=== PATIENT | male | born 1945 | race Two or more races ===

== ENCOUNTER 2023-11-22 10:19 | Emergency (ER) | payer MEDICARE, SELFPAY ==
[2023-11-22] VITALS (13 sets, daily range): BP systolic 133–160; BP diastolic 65–76; PULSE 72–87; TEMP 36.6; O2SAT 87–100; BMI 26.6
--- NOTE | 2023-11-22 10:35 | ED.AMS1 ---
HPI - Altered Mental Status General Chief Complaint: Altered Mental Status Stated Complaint: GENERAL WEAKNESS Time Seen by Provider: 11/22/23 10:30 History of Present Illness HPI narrative: 78-year-old male presents for altered mental status. He had his normal complete dialysis today. He was transported here by paramedics because he seemed a bit confused. He does not complain of a headache or any localized weakness. He complains of no pain. He is a poor historian. Related Data Home Medications ?Medication ?Instructions ?Recorded ?Confirmed acetaminophen 500 mg tablet 500 mg PO .every 8 hours PRN fever 11/22/23 11/22/23 or pain albuterol sulfate 90 mcg/actuation 1 inh inhalation Q4H PRN shortness 11/22/23 11/22/23 aerosol inhaler of breath or wheezing atorvastatin 80 mg tablet 80 mg PO DAILY 11/22/23 11/22/23 calcitriol See Rx Instructions PO .COMPLEX 11/22/23 11/22/23 ergocalciferol (vitamin D2) 1,000 2,000 unit PO DAILY 11/22/23 11/22/23 unit capsule lactulose 10 gram/15 mL oral 30 ml PO TID 11/22/23 11/22/23 solution (Enulose) midodrine 5 mg tablet 5 mg PO .COMPLEX 11/22/23 11/22/23 multivitamin 1 tab PO DAILY 11/22/23 11/22/23 pantoprazole 40 mg tablet,delayed 40 mg PO DAILY 11/22/23 11/22/23 release (Protonix) sevelamer carbonate 800 mg tablet 800 mg PO TIDWMEAL 11/22/23 11/22/23 Review of Systems ROS Narrative A ten point review of systems is negative except as noted above. Exam Narrative Exam Narrative: Nurses note and vital signs reviewed and patient is not hypoxic. General: The patient appears well and in no apparent distress. Patient is resting comfortably on cart. Skin: Warm, dry, no pallor noted. There is no rash noted. Head: Normocephalic, atraumatic Eye: Normal conjunctiva, no drainage Ears, Nose, Mouth, and Throat: oral mucosa is moist. Nares patent. Cardiovascular: Regular Rate and Rhythm Respiratory: Patient is in no distress, no accessory muscle use, lungs are clear to auscultation, no wheezing, rales or rhonchi Back: non-tender GI: Soft and nontender Musculoskeletal: The patient has no evidence of calf tenderness, no pitting edema, symmetrical pulses noted bilaterally Neurological: Awake and alert. Upper and lower extremity strength intact. He knows that he is in the hospital but did not know which 1. He does not know the year. He knows his name. Cranial nerves II through XII appear to be intact. Psychiatric: Cooperative Constitutional Vital Signs, click to edit/add: Last Vital Signs Temp 97.8 F 11/22/23 10:30 Pulse 75 11/22/23 13:00 Resp 16 11/22/23 13:00 BP 152/76 H 11/22/23 13:00 Pulse Ox 98 11/22/23 13:00 O2 Del Method Room Air 11/22/23 10:30 Course Vital Signs Vital signs: Vital Signs Pulse Rate 87 11/22/23 10:23 Respiratory Rate 16 11/22/23 10:23 Temperature 97.8 F 11/22/23 10:30 Pulse Rate 75 11/22/23 13:00 Respiratory Rate 16 11/22/23 13:00 Blood Pressure 152/76 H 11/22/23 13:00 Pulse Oximetry 98 11/22/23 13:00 Oxygen Delivery Method Room Air 11/22/23 10:30 MDM - Altered Mental Status MDM Narrative Medical decision making narrative: His workup here indicates an ammonia level of 87. The rest of his workup is negative. His states that however he is back to himself and he has been up walking around and conversing with her normally. I suspect that this may not be due to his current ammonia level but rather the dialysis that he had this morning. Nonetheless he is ambulatory and back to normal and he is able to be discharged home and his is comfortable with that plan. Differential Diagnosis Differential diagnosis: Likely altered mental status, hypoglycemia, hyponatremia and OTHER (UTI) Lab Data Attestation: I reviewed the patient's lab results. Labs: Lab Results 11/22/23 11/22/23 Range/Units 11:27 13:15 WBC 3.7 L (4.0-11.0) 10^3/uL RBC 2.63 L (4.70-6.10) 10^6/uL Hgb 9.6 L (14.0-18.0) g/dL Hct 29.5 L (42.0-54.0) % MCV 112.2 H (80.0-94.0) fL MCH 36.5 H (25.9-34.0) pg MCHC 32.5 (29.9-35.2) g/dL RDW 14.7 (11.0-15.0) % Plt Count 85 L (150-450) 10^3/uL MPV 11.1 (9.5-13.5) fL Neut % (Auto) 47.3 (43.0-75.0) % Lymph % (Auto) 29.2 (20.5-60.0) % [place] % (Auto) 17.0 H (1.7-12.0) % Eos % (Auto) 4.6 (0.9-7.0) % Baso % (Auto) 1.6 (0.2-2.0) % Neut # (Auto) 1.8 (1.4-6.5) 10^3/uL Lymph # (Auto) 1.1 L (1.2-3.8) 10^3/uL [place] # (Auto) 0.6 (0.3-0.8) 10^3/uL Eos # (Auto) 0.2 (0.0-0.7) 10^3/uL Baso # (Auto) 0.1 (0.0-0.1) 10^3/uL Abs Immat Gran (auto) 0.01 (0.00-0.03) 10^3/uL Imm/Tot Granulo (auto) 0.3 (0.0-0.5) % Sodium 138 (136-145) mmol/L Potassium 2.8 L* (3.5-5.1) mmol/L Chloride 104 (98-107) mmol/L Carbon Dioxide 22.8 (21.0-32.0) mmol/L Anion Gap 14.0 BUN 15.0 (7.0-18.0) mg/dL Creatinine 2.68 H (0.70-1.30) mg/dL Est GFR ( Amer) 28 L (>=60) Est GFR (Non-Af Amer) 23 L (>=60) BUN/Creatinine Ratio 5.6 Glucose 111 H (74-106) mg/dL Calcium 8.9 (8.5-10.1) mg/dL Total Bilirubin 1.2 H (0.2-1.0) mg/dL Direct Bilirubin 0.5 H (0.0-0.2) mg/dL AST 219 H (15-37) U/L ALT 123 H (16-63) U/L Alkaline Phosphatase 144 H (46-116) U/L Ammonia 87 H* (11-32) umol/L Total Protein 6.7 (6.4-8.2) g/dL Albumin 2.1 L (3.4-5.0) g/dL Globulin 4.6 g/dL Albumin/Globulin Ratio 0.5 Urine Color Lt. yellow (YELLOW) Urine Clarity Clear (CLEAR) Urine pH 7.5 (5.0-9.0) Ur Specific [place] 1.010 (1.005-1.025) Urine Protein 100 A (NEG/TRACE) mg/dL Urine Glucose (UA) 100 A (NEGATIVE) mg/dL Urine Ketones Negative (NEGATIVE) mg/dL Urine Occult Blood Large A (NEGATIVE) Urine Nitrite Negative (NEGATIVE) Urine Bilirubin Negative (NEGATIVE) Urine Urobilinogen 0.2 (0.2-1.0) EU/dL Ur Leukocyte Esterase Negative (NEGATIVE) Urine RBC 2-5 A (0-2) #/HPF Urine WBC 0-2 A (NONE SEEN) #/HPF Ur Squamous Epith Cells Rare (NONE/RARE) #/LPF Urine Crystals None seen (None Seen) #/HPF Urine Bacteria Trace A (NONE SEEN) #/HPF Urine Casts None seen (NONE SEEN) #/LPF Urine Mucus None seen (NONE SEEN) ECG Data Attestation: I personally reviewed and interpreted this ECG as follows: (EKG on my interpretation shows normal sinus rhythm without acute change and a rate of 84.) Discharge Plan Discharge Stand Alone Forms: Portal Instructions Chief Complaint: Altered Mental Status Clinical Impression: Altered mental status Patient Disposition: Home, Self-Care Time of Disposition Decision: 13:55 Condition: Good Mode of Transportation: Private Vehicle Prescriptions / Home Meds: No Action acetaminophen 500 mg tablet 500 mg PO .every 8 hours PRN (Reason: fever or pain) albuterol sulfate 90 mcg/actuation HFA aerosol inhaler 1 inh INHALATION Q4H PRN (Reason: shortness of breath or wheezing) atorvastatin 80 mg tablet 80 mg PO DAILY midodrine 5 mg tablet 5 mg PO .COMPLEX Rx Instructions: 5 mg orally take with every dialysis treatment; sevelamer carbonate 800 mg tablet 800 mg PO TIDWMEAL ergocalciferol (vitamin D2) 1,000 unit capsule 2,000 unit PO DAILY lactulose [Enulose] 10 gram/15 mL solution 30 ml PO TID multivitamin Tablet 1 tab PO DAILY pantoprazole [Protonix] 40 mg tablet,delayed release (DR/EC) 40 mg PO DAILY calcitriol See Rx Instructions PO .COMPLEX Rx Instructions: orally three times weekly; Print Language: Vincentian Instructions: Altered Mental Status (ED) Referrals: Physician,Non-Staff, MD [Primary Care Provider] - 1 week
--- NOTE | 2023-11-22 10:38 | ECG_ITS ---
The [facility] Test Date: 2023-11-22 Pat Name: Nolberto Silveira Department: Room: - Gender: Male Judge: : 1945 Requested By: [id number] Order Number: [id number] Reading MD: SARAH CARVAJAL Measurements Intervals [place] Rate: 84 P: 77 NM: 164 QRS: 70 QRSD: 88 T: 68 QT: 370 QTc: 412 Interpretive Statements 1100 Sinus rhythm 4068 Nonspecific [place] abnormality 9130 borderline ECG No previous ECG available for comparison Electronically Signed On 11-22-2023 17:51:14 EDT by SARAH CARVAJAL
--- NOTE | 2023-11-22 10:43 | XR_ITS ---
The [address] [address] Patient Name: TOMMY FELICIANO MRN: [id number] date: 1945 Sex: M Assigned Patient Location: ER Current Patient Location: ED.MAIN Accession/Order Number: [id number] Exam Date: 11/22/2023 10:55 Report Date: 11/22/2023 11:16 At the request of: VALENTINO GRIFFIN Procedure: XR chest 1V EXAMINATION: XR chest 1V HISTORY: Altered mental status COMPARISON: XR chest 08/13/2014 FINDINGS: LUNGS: No significant pulmonary parenchymal abnormalities. VASCULATURE: No increased pulmonary vasculature. PLEURA: Blunting of left lateral costophrenic angle, possible pleural fluid. No pneumothorax. CARDIAC: No cardiomegaly or cardiac silhouette abnormality. MEDIASTINUM: No visible mass or adenopathy. BONES: No fracture or visible bone lesion. OTHER: Negative. XR/XR chest 1V IMPRESSION: 1. Small left pleural effusion versus trace amount of infiltrates or atelectasis within left lateral costophrenic angle. Electronically authenticated by: KRISTINA PATTON Date: 11/22/2023 11:16
--- NOTE | 2023-11-22 10:43 | CT_ITS ---
The [address] [address] Patient Name: TOMMY FELICIANO MRN: [id number] date: 1945 Sex: M Assigned Patient Location: ER Current Patient Location: .MAIN Accession/Order Number: [id number] Exam Date: 11/22/2023 10:55 Report Date: 11/22/2023 11:23 At the request of: VALENTINO GRIFFIN Procedure: CT head/brain wo con EXAMINATION: CT head/brain wo con HISTORY: Altered mental status , increased upper body tremors COMPARISON: No relevant comparison available. TECHNIQUE: Axial CT images were obtained without IV contrast. Dose reduction techniques were achieved by using automated exposure control and/or adjustment of mA and/or kV according to patient size and/or use of iterative reconstruction technique. FINDINGS: BRAIN: Calcium deposition within the basal ganglia bilaterally and within the cerebellum bilaterally. No edema, hemorrhage, mass, acute infarction, or inappropriate atrophy. CSF SPACES: No hydrocephalus, subarachnoid hemorrhage, or mass. Appropriate for age. SKULL: No fracture, mass, or other significant visible lesion. SINUSES: No significant mucosal thickening or fluid on the limited views. ORBITS: No appreciable abnormality on the limited views. OTHER: Negative CT/CT head/brain wo con IMPRESSION: 1. No intracranial hemorrhage, mass, or appreciable acute abnormality. 2. Chronic calcium deposition of questionable clinical significance. Electronically authenticated by: KRISTINA PATTON Date: 11/22/2023 11:23
--- NOTE | 2023-11-22 11:02 | PC.NURSE ---
Patient awake and alert. Slow to answer questions, does answer name appropriately but confused to place, time and events.
--- NOTE | 2023-11-22 11:06 | PC.NURSE ---
here at this time. Med list verified with .
[2023-11-22 11:33] LABS: Basophils Absolute Auto 0.1 10^3/uL (0.0-0.1); Basophils Percent Auto 1.6 % (0.2-2.0); Eosinophils Absolute Auto 0.2 10^3/uL (0.0-0.7); Eosinophils Percent Auto 4.6 % (0.9-7.0); Hematocrit 29.5 % (42.0-54.0); Hemoglobin 9.6 g/dL (14.0-18.0); Immature Granulocytes Abs Auto 0.01 10^3/uL (0.00-0.03); Immature Granulocytes Pct Auto 0.3 % (0.0-0.5); Lymphocytes Absolute Auto 1.1 10^3/uL (1.2-3.8); Lymphocytes Percent Auto 29.2 % (20.5-60.0); Mean Corpuscular HGB Conc 32.5 g/dL (29.9-35.2); Mean Corpuscular Hemoglobin 36.5 pg (25.9-34.0); Mean Corpuscular Volume 112.2 fL (80.0-94.0); Mean Platelet Volume 11.1 fL (9.5-13.5); Monocytes Absolute Auto 0.6 10^3/uL (0.3-0.8); Neutrophils Absolute Auto 1.8 10^3/uL (1.4-6.5); Neutrophils Percent Auto 47.3 % (43.0-75.0); Platelet Count 85 10^3/uL (150-450); Red Blood Count 2.63 10^6/uL (4.70-6.10); Red Cell Distribution Width 14.7 % (11.0-15.0); White Blood Count 3.7 10^3/uL (4.0-11.0)
[2023-11-22 11:51] LABS: BUN Creatinine Ratio 5.6; Calcium 8.9 mg/dL (8.5-10.1); Carbon Dioxide 22.8 mmol/L (21.0-32.0); Chloride 104 mmol/L (98-107); Estimated GFR (African America 28 (>=60); Estimated GFR (Non-African Ame 23 (>=60); Glucose 111 mg/dL (74-106); Sodium 138 mmol/L (136-145)
[2023-11-22 11:53] LABS: Ammonia 87 umol/L (11-32); Potassium 2.8 mmol/L (3.5-5.1)
[2023-11-22 11:54] LABS: Alanine Aminotransferase 123 U/L (16-63); Alkaline Phosphatase 144 U/L (46-116); Aspartate Amino Transferase 219 U/L (15-37); Bilirubin Direct 0.5 mg/dL (0.0-0.2); Bilirubin Total 1.2 mg/dL (0.2-1.0)
[2023-11-22 11:55] LABS: Albumin Globulin Ratio 0.5; Albumin Level 2.1 g/dL (3.4-5.0); Globulin 4.6 g/dL; Total Protein 6.7 g/dL (6.4-8.2)
[2023-11-22 13:30] LABS: Bilirubin Urine NEGATIVE (NEGATIVE); Blood Urine LARGE (NEGATIVE); Clarity Urine CLEAR (CLEAR); Color Urine LT. YELLOW (YELLOW); Glucose Urine UA 100 mg/dL (NEGATIVE); Ketones Urine NEGATIVE (NEGATIVE); Leukocyte Esterase Urine NEGATIVE (NEGATIVE); Nitrite Urine NEGATIVE (NEGATIVE); Protein Urine 100 mg/dL (NEG/TRACE); Urobilinogen Urine 0.2 EU/dL (0.2-1.0); pH Urine 7.5 (5.0-9.0)
--- NOTE | 2023-11-22 13:39 | PC.NURSE ---
Up to BR and back without diffictulty, gait steady. Patient answering all questions appropriately at this time. reports that patient is acting like his self at current time.
[2023-11-22 13:40] LABS: Bacteria Urine TRACE #/HPF (NONE SEEN); Cast Seen? NONE SEEN #/LPF (NONE SEEN); Crystals Seen? None Seen #/HPF (None Seen); Mucus Urine NONE SEEN (NONE SEEN); Squamous Epithelial Cell Urine RARE #/LPF (NONE/RARE)
[2023-11-22 13:44] LABS: WBC Urine 0-2 #/HPF (NONE SEEN)
== END 2023-11-22 14:14 | disposition home or self-care (01) ==
PROVIDERS: Emergency Provider Emergency Medicine
DX: R41.82 Altered mental status, unspecified (principal); Z99.2 Dependence on renal dialysis; Z79.899 Other long term (current) drug therapy
CPT/HCPCS: 36415; 70450; 71045; 80048; 80076; 81001; 82140; 85025; 93005; 99285

== ENCOUNTER 2024-01-22 09:55 | Emergency (ER) | payer MEDICARE, SELFPAY ==
[2024-01-22] VITALS (27 sets, daily range): BP systolic 154–173; BP diastolic 68–74; PULSE 78–90; TEMP 36.7; O2SAT 95–100; BMI 21.9
--- NOTE | 2024-01-22 10:00 | CT_ITS ---
The [address] [address] Patient Name: TOMMY FELICIANO MRN: [id number] date: 1945 Sex: M Assigned Patient Location: ER Current Patient Location: ER Accession/Order Number: [id number] Exam Date: 01/22/2024 10:27 Report Date: 01/22/2024 11:12 At the request of: LUZMA KO Procedure: CT head/brain wo con EXAMINATION: CT head/brain wo con HISTORY: ams weakness, confusion after dialysis COMPARISON: CT head 11/22/2023 TECHNIQUE: Axial CT images were obtained without IV contrast. Dose reduction techniques were achieved by using automated exposure control and/or adjustment of mA and/or kV according to patient size and/or use of iterative reconstruction technique. FINDINGS: BRAIN: No edema, hemorrhage, mass, acute infarction, or inappropriate atrophy. Stable chronic [calcifications. CSF SPACES: No hydrocephalus, subarachnoid hemorrhage, or mass. Appropriate for age. SKULL: No fracture, mass, or other significant visible lesion. SINUSES: No significant mucosal thickening or fluid on the limited views. ORBITS: No appreciable abnormality on the limited views. OTHER: Negative CT/CT head/brain wo con IMPRESSION: 1. No intracranial hemorrhage, mass, or appreciable acute abnormality. 2. Stable scattered chronic calcium deposition. 3. Stable age consistent atrophy. Electronically authenticated by: KRISTINA PATTON Date: 01/22/2024 11:12
--- NOTE | 2024-01-22 10:00 | XR_ITS ---
[address] [address] Patient Name: TOMMY FELICIANO MRN: [id number] date: 1945 Sex: M Assigned Patient Location: ER Current Patient Location: ER Accession/Order Number: [id number] Exam Date: 01/22/2024 10:27 Report Date: 01/22/2024 11:14 At the request of: LUZMA KO Procedure: XR chest 1V EXAMINATION: XR chest 1V HISTORY: ams ; altered mental status, weakness, confusion after dialysis COMPARISON: XR chest 11/22/2023 FINDINGS: LUNGS: No significant pulmonary parenchymal abnormalities. VASCULATURE: No increased pulmonary vasculature. PLEURA: No pneumothorax, effusion, or pleural thickening. CARDIAC: No cardiomegaly or cardiac silhouette abnormality. MEDIASTINUM: No visible mass or adenopathy. BONES: No fracture or visible bone lesion. OTHER: Negative. XR/XR chest 1V IMPRESSION: 1. No acute cardiopulmonary process. Electronically authenticated by: KRISTINA PATTON Date: 01/22/2024 11:14
--- NOTE | 2024-01-22 10:00 | ECG_ITS ---
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
[2024-01-22 10:28] LABS: Basophils Absolute Auto 0.1 10^3/uL (0.0-0.1); Basophils Percent Auto 1.6 % (0.2-2.0); Eosinophils Absolute Auto 0.2 10^3/uL (0.0-0.7); Eosinophils Percent Auto 6.3 % (0.9-7.0); Hematocrit 28.5 % (42.0-54.0); Hemoglobin 9.6 g/dL (14.0-18.0); Immature Granulocytes Abs Auto 0.01 10^3/uL (0.00-0.03); Immature Granulocytes Pct Auto 0.3 % (0.0-0.5); Lymphocytes Absolute Auto 1.3 10^3/uL (1.2-3.8); Lymphocytes Percent Auto 33.9 % (20.5-60.0); Mean Corpuscular HGB Conc 33.7 g/dL (29.9-35.2); Mean Corpuscular Hemoglobin 36.8 pg (25.9-34.0); Mean Corpuscular Volume 109.2 fL (80.0-94.0); Mean Platelet Volume 10.9 fL (9.5-13.5); Monocytes Absolute Auto 0.7 10^3/uL (0.3-0.8); Monocytes Percent Auto 17.9 % (1.7-12.0); Neutrophils Absolute Auto 1.5 10^3/uL (1.4-6.5); Platelet Count 85 10^3/uL (150-450); Red Blood Count 2.61 10^6/uL (4.70-6.10); Red Cell Distribution Width 17.3 % (11.0-15.0); White Blood Count 3.8 10^3/uL (4.0-11.0)
--- NOTE | 2024-01-22 10:29 | ED_ITS ---
HPI HPI - General Adult General Chief complaint: Weakness Stated complaint: general weakness Time Seen by Provider: 01/22/24 10:00 Source: patient Mode of arrival: ambulance Limitations: no limitations History of Present Illness HPI narrative: Patient presents to ED From dialysis. Apparently started feeling unwell during dialysis and had some shakiness and confusion. He asked to come to the hospital but then when EMS arrived he said he was feeling better and did not want to come. His is his POA And suggested that he come get checked out anyway. He is unable to tell us the correct date or really where he is or his birthdate. He is unsure what month it is. He has an old surgical scar on his abdomen but he is unable to tell me what surgery he had done in the past. He lives at home with . He apparently missed dialysis Saturday and got about 2 and half hours done today. Vital signs are stable and he has no complaints at this time. He denies any recent falls. He denies chest pain or abdominal pain. Related Data Home Medications ?Medication ?Instructions ?Recorded ?Confirmed acetaminophen 500 mg tablet 500 mg PO Q8H PRN fever or pain 11/22/23 01/22/24 albuterol sulfate 90 mcg/actuation 1 inh inhalation Q4H PRN shortness 11/22/23 01/22/24 aerosol inhaler of breath or wheezing atorvastatin 80 mg tablet 80 mg PO DAILY 11/22/23 01/22/24 ergocalciferol (vitamin D2) 1,000 2,000 unit PO DAILY 11/22/23 01/22/24 unit capsule lactulose 10 gram/15 mL oral 30 ml PO TID 11/22/23 01/22/24 solution (Enulose) midodrine 5 mg tablet 5 mg PO .COMPLEX 11/22/23 01/22/24 multivitamin 1 tab PO DAILY 11/22/23 01/22/24 pantoprazole 40 mg tablet,delayed 40 mg PO DAILY 11/22/23 01/22/24 release (Protonix) sevelamer carbonate 800 mg tablet 1,600 mg PO .BIDWMEAL 11/22/23 01/22/24 sevelamer carbonate 800 mg tablet 2,400 mg PO .WDINNER 01/22/24 01/22/24 vitamin B complex-vitamin C 100 1 tab PO DAILY 01/22/24 01/22/24 mg-folic acid 1 mg tablet (Dialyvite) Previous Rx's ?Medication ?Instructions ?Recorded cephalexin 500 mg capsule 500 mg PO BID 7 days #14 caps 01/22/24 Allergies Allergy/AdvReac Type Severity Reaction Status Date / Time No Known Drug Allergies Allergy Verified 01/22/24 10:00 Opioid HPI Opioid Management Most Recent Opioid Data: No Data to Display Review of Systems ROS Status of ROS 10 or more systems reviewed and unremark able except as noted in history and below Exam Narrative Exam Narrative: Time Seen: [] Vital Signs: [Per nurse's notes.] General: [Alert] Altered mental status Skin: [Warm, dry, no rash.] Head: [Normocephalic, atraumatic.] Neck: [Supple, trachea midline.] Eye: [Pupils are equal, round and reactive to light, extraocular movements are intact, normal conjunctiva.] Ears, nose, mouth and throat: oral mucosa moist. Cardiovascular: [Regular rate and rhythm, no murmur.] Respiratory: [Lungs are clear to auscultation, respirations are non-labored, breath sounds are equal.] Chest wall: [No tenderness, no deformity.] Gastrointestinal: [Soft, nontender, non distended, normal bowel sounds.]Surgical scars on abdomen but abdomen is soft MSK: 5 out of 5 muscle strength x 4 extremities no calf pain or edema Lymphatics: [No lymphadenopathy.] Psychiatric: [Cooperative, appropriate mood & affect.] Neurological: [Alert and oriented to person,Confusion, no focal neurological deficit observed.] Constitutional Vital Signs, click to edit/add: Last Vital Signs Temp 98.1 F 01/22/24 10:00 Pulse 78 01/22/24 13:40 Resp 12 01/22/24 13:40 BP 164/68 H 01/22/24 13:30 Pulse Ox 99 01/22/24 13:40 O2 Del Method Room Air 01/22/24 11:23 Course Vital Signs Vital signs: Vital Signs Temperature 98.1 F 01/22/24 10:00 Pulse Rate 85 01/22/24 10:00 Respiratory Rate 20 01/22/24 10:00 Blood Pressure 173/74 H 01/22/24 10:00 Pulse Oximetry 98 01/22/24 10:00 Oxygen Delivery Method Room Air 01/22/24 10:00 Temperature 98.1 F 01/22/24 10:00 Pulse Rate 78 01/22/24 13:40 Respiratory Rate 12 01/22/24 13:40 Blood Pressure 164/68 H 01/22/24 13:30 Pulse Oximetry 99 01/22/24 13:40 Oxygen Delivery Method Room Air 01/22/24 11:23 Medical Decision Making MDM Narrative Medical decision making narrative: Patient's labs are relatively nonacute. He has chronic kidney disease. Potassium is okay. Ammonia was only slightly elevated at 48 but is trending d own as it was 76 yesterday per patient's . Patient's states this is his third visit to an ER and he sleeps for a little wakes up and then is back to normal. He was discharged from [facility] as well as [place] and is now here today. The reports that she has noted he was doing okay and he says he feeling pretty much back to normal. CT brain negative for acute. Patient has a an appointment tomorrow with a general farm hand and the really wants to get him to that appointment. She would prefer to take him home. She reports that the past couple of days with urination he has been complaining of a lot of burning and pain. UA is relatively negative but with symptomatic UTI I will send him home with antibiotics. Of course return to emergency room if worsening symptoms or concerns. Differential Diagnosis Differential Diagnosis: Hypokalemia hyperkalemia mental status intracranial hemorrhage UTI Medical Records Medical records reviewed: Yes I reviewed the patient's medical records Lab Data Lab results reviewed: Yes I reviewed the patient's lab results Labs: Lab Results 01/22/24 01/22/24 Range/Units 10:12 12:02 WBC 3.8 L (4.0-11.0) 10^3/uL RBC 2.61 L (4.70-6.10) 10^6/uL Hgb 9.6 L (14.0-18.0) g/dL Hct 28.5 L (42.0-54.0) % MCV 109.2 H (80.0-94.0) fL MCH 36.8 H (25.9-34.0) pg MCHC 33.7 (29.9-35.2) g/dL RDW 17.3 H (11.0-15.0) % Plt Count 85 L (150-450) 10^3/uL MPV 10.9 (9.5-13.5) fL Neut % (Auto) 40.0 L (43.0-75.0) % Lymph % (Auto) 33.9 (20.5-60.0) % [place] % (Auto) 17.9 H (1.7-12.0) % Eos % (Auto) 6.3 (0.9-7.0) % Baso % (Auto) 1.6 (0.2-2.0) % Neut # (Auto) 1.5 (1.4-6.5) 10^3/uL Lymph # (Auto) 1.3 (1.2-3.8) 10^3/uL [place] # (Auto) 0.7 (0.3-0.8) 10^3/uL Eos # (Auto) 0.2 (0.0-0.7) 10^3/uL Baso # (Auto) 0.1 (0.0-0.1) 10^3/uL Abs Immat Gran (auto) 0.01 (0.00-0.03) 10^3/uL Imm/Tot Granulo (auto) 0.3 (0.0-0.5) % Sodium 139 (136-145) mmol/L Potassium 3.4 L (3.5-5.1) mmol/L Chloride 103 (98-107) mmol/L Carbon Dioxide 25.1 (21.0-32.0) mmol/L Anion Gap 14.3 BUN 40.0 H (7.0-18.0) mg/dL Creatinine 5.28 H* (0.70-1.30) mg/dL Est GFR ( Amer) 13 L (>=60) Est GFR (Non-Af Amer) 11 L (>=60) BUN/Creatinine Ratio 7.6 Glucose 129 H (74-106) mg/dL Lactate 1.8 (0.4-2.0) mmol/L Calcium 8.3 L (8.5-10.1) mg/dL Magnesium 1.9 (1.8-2.4) mg/dL Total Bilirubin 1.7 H (0.2-1.0) mg/dL AST 23 (15-37) U/L ALT 29 (16-63) U/L Alkaline Phosphatase 127 H (46-116) U/L Ammonia 48 H* (11-32) umol/L Troponin I High Sens 62.7 (4.0-76.1) pg/mL NT-Pro-B Natriuret Pep 6711.0 H* (<=1800.0) pg/mL Total Protein 6.9 (6.4-8.2) g/dL Albumin 2.3 L (3.4-5.0) g/dL Globulin 4.6 g/dL Albumin/Globulin Ratio 0.5 Urine Color Lt. yellow (YELLOW) Urine Clarity Clear (CLEAR) Urine pH 7.5 (5.0-9.0) Ur Specific [place] 1.010 (1.005-1.025) Urine Protein 30 A (NEG/TRACE) mg/dL Urine Glucose (UA) 250 A (NEGATIVE) mg/dL Urine Ketones Negative (NEGATIVE) mg/dL Urine Occult Blood Moderate A (NEGATIVE) Urine Nitrite Negative (NEGATIVE) Urine Bilirubin Negative (NEGATIVE) Urine Urobilinogen 0.2 (0.2-1.0) EU/dL Ur Leukocyte Esterase Negative (NEGATIVE) Urine RBC 2-5 A (0-2) #/HPF Urine WBC None seen (NONE SEEN) #/HPF Ur Squamous Epith Cells None seen (NONE/RARE) #/LPF Urine Crystals None seen (None Seen) #/HPF Urine Bacteria Trace A (NONE SEEN) #/HPF Urine Casts None seen (NONE SEEN) #/LPF Urine Mucus None seen (NONE SEEN) Ur Culture Indicated? No Imaging Data Chest x-ray: Radiologist's impression: ITS Impressions Chest X-Ray 01/22/24 10:00 IMPRESSION: 1. No acute cardiopulmonary process. Electronically authenticated by: KRISTINA PATTON Date: 01/22/2024 11:[address] 01/22/24 10:00 IMPRESSION: 1. No intracranial hemorrhage, mass, or appreciable acute abnormality. 2. Stable scattered chronic calcium deposition. 3. Stable age consistent atrophy. Electronically authenticated by: KRISTINA PATTON Date: 01/22/2024 11:12 ECG Data Attestation: I personally reviewed and interpreted this ECG as follows: Interpretation: EKG INTERPRETATION Time: []1002 Rate: []84 Rhythm: _ []Sinus rhythm ST segments: _ []No acute ST elevation or depression T waves: _ [] Ectopy: _ [] P wave/[place] interval: _ [] QRS interval: _ [] QT interval: _ [] Comparison: _ [] Comparison EKG date: [] Performed by: [self] Discharge Plan Discharge Stand Alone Forms: Portal Instructions Chief Complaint: Weakness Clinical Impression: Altered mental status Patient Disposition: Home, Self-Care Time of Disposition Decision: 13:26 Condition: Fair Mode of Transportation: Private Vehicle Prescriptions / Home Meds: New cephalexin 500 mg capsule 500 mg PO BID 7 Days Qty: 14 0RF No Action acetaminophen 500 mg tablet 500 mg PO Q8H PRN (Reason: fever or pain) albuterol sulfate 90 mcg/actuation HFA aerosol inhaler 1 inh INHALATION Q4H PRN (Reason: shortness of breath or wheezing) atorvastatin 80 mg tablet 80 mg PO DAILY midodrine 5 mg tablet 5 mg PO .COMPLEX Rx Instructions: 5 mg orally take with every dialysis treatment; sevelamer carbonate 800 mg tablet 1,600 mg PO .BIDWMEAL ergocalciferol (vitamin D2) 1,000 unit capsule 2,000 unit PO DAILY lactulose [Enulose] 10 gram/15 mL solution 30 ml PO TID multivitamin Tablet 1 tab PO DAILY pantoprazole [Protonix] 40 mg tablet,delayed release (DR/EC) 40 mg PO DAILY sevelamer carbonate 800 mg tablet 2,400 mg PO .WDINNER Rx Instructions: must administer with a meal/food Dialyvite 100-1 mg tablet 1 tab PO DAILY Print Language: Greenlandic Instructions: Urinary Tract Infection in Men (ED), Altered Mental Status (ED) Referrals: Juanita Gonzales NP [Primary Care Provider] - 1 week
[2024-01-22 10:50] LABS: Lactate/Lactic Acid 1.8 mmol/L (0.4-2.0)
[2024-01-22 10:52] LABS: Alanine Aminotransferase 29 U/L (16-63); Albumin Globulin Ratio 0.5; Albumin Level 2.3 g/dL (3.4-5.0); Alkaline Phosphatase 127 U/L (46-116); Anion Gap 14.3; Aspartate Amino Transferase 23 U/L (15-37); BUN Creatinine Ratio 7.6; Bilirubin Total 1.7 mg/dL (0.2-1.0); Calcium 8.3 mg/dL (8.5-10.1); Carbon Dioxide 25.1 mmol/L (21.0-32.0); Chloride 103 mmol/L (98-107); Estimated GFR (African America 13 (>=60); Estimated GFR (Non-African Ame 11 (>=60); Globulin 4.6 g/dL; Glucose 129 mg/dL (74-106); Magnesium 1.9 mg/dL (1.8-2.4); Potassium 3.4 mmol/L (3.5-5.1); Sodium 139 mmol/L (136-145); Total Protein 6.9 g/dL (6.4-8.2); Troponin I High Sensitivity 62.7 pg/mL (4.0-76.1)
[2024-01-22 11:06] LABS: Ammonia 48 umol/L (11-32)
[2024-01-22 12:34] LABS: Bilirubin Urine NEGATIVE (NEGATIVE); Blood Urine MODERATE (NEGATIVE); Clarity Urine CLEAR (CLEAR); Color Urine LT. YELLOW (YELLOW); Glucose Urine UA 250 mg/dL (NEGATIVE); Ketones Urine NEGATIVE (NEGATIVE); Leukocyte Esterase Urine NEGATIVE (NEGATIVE); Nitrite Urine NEGATIVE (NEGATIVE); Protein Urine 30 mg/dL (NEG/TRACE); Urobilinogen Urine 0.2 EU/dL (0.2-1.0); pH Urine 7.5 (5.0-9.0)
[2024-01-22 12:35] LABS: Urine Microscopic Indicated YES
[2024-01-22 12:43] LABS: Bacteria Urine TRACE #/HPF (NONE SEEN); Cast Seen? NONE SEEN #/LPF (NONE SEEN); Crystals Seen? None Seen #/HPF (None Seen); Mucus Urine NONE SEEN (NONE SEEN); Squamous Epithelial Cell Urine NONE SEEN #/LPF (NONE/RARE); Urine Culture Indicated NO; WBC Urine NONE SEEN #/HPF (NONE SEEN)
== END 2024-01-22 14:10 | disposition home or self-care (01) ==
PROVIDERS: Emergency Provider Emergency Medicine; PCP Nurse Practitioner Family
DX: R41.82 Altered mental status, unspecified (principal); Z99.2 Dependence on renal dialysis; N18.9 Chronic kidney disease, unspecified
CPT/HCPCS: 36415; 70450; 71045; 80053; 81001; 82140; 83605; 83735; 83880; 84484; 85025; 87040; 93005; 99285